=== PATIENT | female | born 1995 | race Caucasian/White ===

== ENCOUNTER 2017-03-31 15:00 | Inpatient (IN) ==
--- NOTE | 2017-03-31 15:41 | Emergency Department Note ---
Disposition Clinical Impression: Suicidal ideation, Visual hallucinations, Medical clearance for psychiatric admission Iron deficiency anemia Qualifiers: Iron deficiency anemia type: unspecified iron deficiency Qualified Code(s): D50.9 - Iron deficiency anemia, unspecified Disposition: Admitted As Inpatient Condition: Good Referrals: NONE,PCP [Primary Care Provider] - Forms: ED Satisfaction Letter Psych HPI - General Chief Complaint: ED Psychiatric Symptoms Stated Complaint: hallucinations/paranoid Time Seen by Provider: 03/31/17 15:20 Source: patient, family Mode of arrival: private vehicle Limitations: no limitations Nursing Notes Reviewed: Yes Vital Signs Reviewed: Yes - History of Present Illness HPI Narrative: 21-year-old female no reported psychiatric history who presents to the ER in the care of her family with a chief complaint of hallucinations and suicidal ideation. Family reports she went on a trip see her boyfriend in [place] 2 weeks ago. They state the trip went well and she came home and a good mood. Reports that after that she started to be depressed at home. States over the last 2-3 days she has been seen inks at home that are not there. Reports she saw her grandfather as well as a child in the home. She also states that she thinks that her time to . She does not elaborate on any plan. Denies any illicit drug use. Family does report they gave her 2 wine coolers yesterday to try to calm her down. Reports her emotions have been very sporadic. No other complaints. Pt complaint: suicidal ideation, feels depressed Onset (ago): day(s) Duration: constant History of similar episodes: No Improves with: none Worsens with: none Alleged intoxication: No Associated Psychiatric Symptoms: suicidal ideation, racing thoughts, visual hallucinations Associated symptoms: Reports: denies other symptoms Traumatic symptoms: denies traumatic injury Treatments prior to arrival: none Self harm or harm to others: admits thoughts of self harm, denies thoughts of harming self/others, denies having a plan - Related Data Allergies Allergy/AdvReac Type Severity Reaction Status Date / Time guaifenesin [From Robitussin] Allergy Hives Verified 03/31/17 15:04 sulfamethoxazole Allergy Hives Verified 03/31/17 15:04 [From Bactrim] trimethoprim [From Bactrim] Allergy Hives Verified 03/31/17 15:04 All systems ED: reviewed and negative except as stated. Neurological: Denies: headache Psychiatric: Reports: anxiety, depression, suicidal thoughts, visual hallucinations. Denies: homicidal thoughts, auditory hallucinations Past Medical History - Past Medical History Attestation: Yes The following information was validated with the patient. Source: patient Medical history: Reports: no medical history Psychiatric history: Reports: no psych history DIALYSIS NURSE history: Reports: no DIALYSIS NURSE history - Social History Smoking Status: Former smoker Smokeless Tobacco Status: No Alcohol use: Reports: occasionally, recent Drug use: Reports: marijuana Physical Exam - General Limitations: no limitations General appearance: alert, in no apparent distress - Head Head exam: atraumatic - Eye Eye exam: Present: normal appearance - ENT ENT exam: normal exam - Neck Neck exam: Present: normal inspection, full ROM - Chest Chest inspection: Present: normal inspection, symmetric chest wall rise - Respiratory Respiratory exam: Present: normal lung sounds bilaterally - Cardiovascular Cardiovascular exam: Present: regular rate, normal rhythm, normal heart sounds - Abdominal Exam Abdominal exam: Present: soft, Non-Tender. Absent: tenderness - Extremities Exam Extremities exam: Present: normal inspection, full ROM - Expanded Upper Extremity Exam Shoulder exam: Present: normal inspection, full ROM Arm exam: Present: normal inspection, full ROM Elbow exam: Present: normal inspection, full ROM Forearm/Wrist exam: Present: normal inspection, full ROM Hand exam: Present: normal inspection, full ROM - Expanded Lower Extremity Exam Hip/Pelvis exam: Present: normal inspection, full ROM Upper leg exam: Present: normal inspection, full ROM Knee exam: Present: normal inspection, full ROM Lower leg exam: Present: normal inspection, full ROM Ankle exam: Present: normal inspection, full ROM Foot/toe exam: Present: normal inspection, full ROM - Neurological Exam Neurological exam: Present: alert, other (Anxious, answers questions appropriately.) - Psychiatric Psychiatric exam: Present: anxious - Expanded Psychiatric Exam Expanded psych exam: Present: other (Emotionally labile in the room.) - Skin Skin exam: Present: warm Course Course Narrative: Patient seen and examined. Christie slip sign for suicidal ideation and hallucinations. We will get medical clearance labs for psychiatric evaluation. - Reevaluation(s) Reevaluation #1: Medical clear. Noted to be anemic. Vital Signs Temperature 98.2 F 03/31/17 15:04 Pulse Rate 83 03/31/17 15:04 Respiratory Rate 16 03/31/17 15:04 Blood Pressure 136/92 03/31/17 15:04 O2 Sat by Pulse Oximetry 100 03/31/17 15:04 Temperature 98.2 F 03/31/17 15:04 Pulse Rate 83 03/31/17 15:04 Respiratory Rate 16 03/31/17 15:04 Blood Pressure 136/92 03/31/17 15:04 O2 Sat by Pulse Oximetry 100 03/31/17 15:04 Oxygen Delivery Oxygen Delivery Room Air Psych - MDM Narrative Medical decision making narrative: 21-year-old female presents to the ER due to suicidal ideation and visual hallucinations. Noted to be anemic here with reported spotting for 3 weeks. She is medically cleared and evaluated by the psychiatric team. They recommend inpatient admission. - Lab Data Lab results reviewed: Yes I reviewed the patient's lab results. Result diagrams: 03/31/17 15:36 03/31/17 15:36 Lab Results 03/31/17 03/31/17 03/31/17 Range/Units 15:35 15:35 15:36 WBC 6.1 (4.3-11.1) K/mcL RBC 4.91 (3.82-4.97) M/mcL Hgb 10.4 L (11.5-15.4) g/dL Hct 35.1 L (35.3-44.9) % MCV 71.5 L (83.0-100.0) fL MCH 21.2 L (28.0-33.3) pg MCHC 29.6 L (31.6-35.5) g/dL RDW 18.6 H (11.5-14.5) % Plt Count 379 (140-400) K/mcL MPV 10.7 (9.4-12.4) fL Immature Gran % 0.2 (0-4) % Seg Neutrophils % 53.7 % Lymphocytes % 32.5 % Monocytes % 12.4 % Eosinophils % 0.5 % Basophils % 0.7 % Neutrophils # 3.3 (1.6-8.9) K/mcL Lymphocytes # 2.0 (0.6-4.6) K/mcL Monocytes # 0.8 (0.0-1.3) K/mcL Eosinophils # 0.0 (0.0-0.6) K/mcL Basophils # 0.0 (0.0-0.2) K/mcL Platelet Estimate Normal (Normal) Hypochromasia Present A (Not Present) Anisocytosis 1+ A (Not Present) Microcytosis Present A (Not Present) Sodium (136-145) mEq/L Potassium (3.5-5.1) mEq/L Chloride (98-107) mEq/L Carbon Dioxide (23-29) mEq/L BUN (6-20) mg/dL Creatinine (0.60-1.20) mg/dL Est GFR ( Amer) Est GFR (Non-Af Amer) BUN/Creatinine Ratio (6-26) Glucose (70-105) mg/dL Calculated Osmolality (280-300) Calcium (8.6-10.3) mg/dL Total Bilirubin (0.3-1.0) mg/dL Direct Bilirubin (0.0-0.2) mg/dL Indirect Bilirubin (0.0-1.2) mg/dL AST (13-39) Units/L ALT (7-52) Units/L Alkaline Phosphatase (34-104) Units/L Serum Total Protein (6.4-8.9) g/dL Albumin (3.5-5.7) g/dL Globulin (2.4-3.5) g/dL Albumin/Globulin Ratio (1.1-2.2) TSH (0.340-5.600) mcIU/mL Serum , Qual (Negative) Urine Color Yellow (Yellow) Urine Clarity Cloudy A (Clear) Urine pH 7.5 (5.0-8.0) pH Units Ur Specific [place] 1.022 (1.010-1.025) Urine Protein Trace (Neg-Trace) mg/dL Urine Glucose (UA) Normal (Normal) mg/dL Urine Ketones 80 H (Negative) mg/dL Urine Blood Large H (Negative) Urine Nitrite Negative (Negative) Urine Bilirubin Negative (Negative) Urine Urobilinogen Normal (Normal) mg/dL Ur Leukocyte Esterase Negative (Negative) Urine Microscopic RBC 5-15 H (0-3) per hpf Urine Microscopic WBC 5-15 H (0-3) per hpf Ur Squamous Epith Cells Many H (None-Few) per lpf Urine Bacteria None Seen (None-Few) per hpf Hyaline Casts None Seen (None-Few) per lpf Urine Yeast [employer] Salicylates (15.0-30.0) mg/dL Urine Opiates Screen Negative (Bwcoiq=896) ng/mL Acetaminophen (10-30) mcg/mL Ur Barbiturates Screen Negative (Hfkugz=096) ng/mL Ur Phencyclidine Scrn Negative (Cutoff=25) ng/mL Ur Amphetamines Screen Negative (Rrmdhr=5271) ng/mL U Benzodiazepines Scrn Negative (Nbhqed=957) ng/mL Urine Cocaine Screen Negative (Cutoff= 300) ng/mL U Marijuana (THC) Screen Positive H (Cutoff = 50) ng/mL Ethyl Alcohol (0-10) mg/dL 03/31/17 03/31/17 Range/Units 15:36 15:36 WBC (4.3-11.1) K/mcL RBC (3.82-4.97) M/mcL Hgb (11.5-15.4) g/dL Hct (35.3-44.9) % MCV (83.0-100.0) fL MCH (28.0-33.3) pg MCHC (31.6-35.5) g/dL RDW (11.5-14.5) % Plt Count (140-400) K/mcL MPV (9.4-12.4) fL Immature Gran % (0-4) % Seg Neutrophils % % Lymphocytes % % Monocytes % % Eosinophils % % Basophils % % Neutrophils # (1.6-8.9) K/mcL Lymphocytes # (0.6-4.6) K/mcL Monocytes # (0.0-1.3) K/mcL Eosinophils # (0.0-0.6) K/mcL Basophils # (0.0-0.2) K/mcL Platelet Estimate (Normal) Hypochromasia (Not Present) Anisocytosis (Not Present) Microcytosis (Not Present) Sodium 137 (136-145) mEq/L Potassium 3.9 (3.5-5.1) mEq/L Chloride 105 (98-107) mEq/L Carbon Dioxide 24 (23-29) mEq/L BUN 9 (6-20) mg/dL Creatinine 0.67 (0.60-1.20) mg/dL Est GFR ( Amer) > 60 Est GFR (Non-Af Amer) > 60 BUN/Creatinine Ratio 13 (6-26) Glucose 93 (70-105) mg/dL Calculated Osmolality 282 (280-300) Calcium 9.9 (8.6-10.3) mg/dL Total Bilirubin 0.9 (0.3-1.0) mg/dL Direct Bilirubin 0.2 (0.0-0.2) mg/dL Indirect Bilirubin 0.7 (0.0-1.2) mg/dL AST 14 (13-39) Units/L ALT 7 (7-52) Units/L Alkaline Phosphatase 70 (34-104) Units/L Serum Total Protein 7.8 (6.4-8.9) g/dL Albumin 4.7 (3.5-5.7) g/dL Globulin 3.1 (2.4-3.5) g/dL Albumin/Globulin Ratio 1.5 (1.1-2.2) TSH 1.157 (0.340-5.600) mcIU/mL Serum , Qual Negative (Negative) Urine Color (Yellow) Urine Clarity (Clear) Urine pH (5.0-8.0) pH Units Ur Specific [place] (1.010-1.025) Urine Protein (Neg-Trace) mg/dL Urine Glucose (UA) (Normal) mg/dL Urine Ketones (Negative) mg/dL Urine Blood (Negative) Urine Nitrite (Negative) Urine Bilirubin (Negative) Urine Urobilinogen (Normal) mg/dL Ur Leukocyte Esterase (Negative) Urine Microscopic RBC (0-3) per hpf Urine Microscopic WBC (0-3) per hpf Ur Squamous Epith Cells (None-Few) per lpf Urine Bacteria (None-Few) per hpf Hyaline Casts (None-Few) per lpf Urine Yeast Salicylates < 5.0 L (15.0-30.0) mg/dL Urine Opiates Screen (Pglzij=349) ng/mL Acetaminophen < 1.0 L (10-30) mcg/mL Ur Barbiturates Screen (Hqymvb=770) ng/mL Ur Phencyclidine Scrn (Cutoff=25) ng/mL Ur Amphetamines Screen (Tziaid=8113) ng/mL U Benzodiazepines Scrn ([place]=209) ng/mL Urine Cocaine Screen (Cutoff= 300) ng/mL U Marijuana (THC) Screen (Cutoff = 50) ng/mL Ethyl Alcohol < 10 (0-10) mg/dL Psychiatric Medical Clearance - Medical Clearance Checklist Medical History: Iron deficiency anemia (Acute) Suicidal ideation (Acute) Visual hallucinations (Acute) No Social History Section defined Current Vitals: Last Vital Signs Temp 98.2 F 03/31/17 15:04 Pulse 83 03/31/17 15:04 Resp 16 03/31/17 15:04 BP 136/92 03/31/17 15:04 Pulse Ox 100 03/31/17 15:04 Psychiatric Lab Panel: Drug Levels and Toxicity 03/31/17 03/31/17 15:35 15:36 Urine Opiates Screen Negative Acetaminophen < 1.0 L Ur Barbiturates Screen Negative Ur Phencyclidine Scrn Negative Ur Amphetamines Screen Negative U Benzodiazepines Scrn Negative Urine Cocaine Screen Negative U Marijuana (THC) Screen Positive H Ethyl Alcohol < 10 Abnormal Labs: Abnormal lab results Hgb 10.4 g/dL (11.5-15.4) L 03/31/17 15:36 Hct 35.1 % (35.3-44.9) L 03/31/17 15:36 MCV 71.5 fL (83.0-100.0) L 03/31/17 15:36 MCH 21.2 pg (28.0-33.3) L 03/31/17 15:36 MCHC 29.6 g/dL (31.6-35.5) L 03/31/17 15:36 RDW 18.6 % (11.5-14.5) H 03/31/17 15:36 Hypochromasia Present (Not Present) A 03/31/17 15:36 Anisocytosis 1+ (Not Present) A 03/31/17 15:36 Microcytosis Present (Not Present) A 03/31/17 15:36 Urine Clarity Cloudy (Clear) A 03/31/17 15:35 Urine Ketones 80 mg/dL (Negative) H 03/31/17 15:35 Urine Blood Large (Negative) H 03/31/17 15:35 Urine Microscopic RBC 5-15 per hpf (0-3) H 03/31/17 15:35 Urine Microscopic WBC 5-15 per hpf (0-3) H 03/31/17 15:35 Ur Squamous Epith Cells Many per lpf (None-Few) H 03/31/17 15:35 Salicylates < 5.0 mg/dL (15.0-30.0) L 03/31/17 15:36 Acetaminophen < 1.0 mcg/mL (10-30) L 03/31/17 15:36 U Marijuana (THC) Screen Positive ng/mL (Cutoff = 50) H 03/31/17 15:35 Attestation Statement - Attestation Attestation: I examined this patient and my medical decision-making was reviewed with the Resident Physician, Dr. Escobar. I agree with the documented findings, disposition and treatment plan as described except to the extent set forth below. Patient is a 21-year-old white female with no prior psychiatric history or hospitalizations to his right the emergency department today by her mom has been concerned about gradually worsening increased depression over the past 24- 48 hours, emotional lability, and most recently reported suicidal ideation. Patient has no plan is made no attempt to harm herself. She is also complaining of both visual and auditory hallucinations. There is been no recent stressors in the home or significant events that have occurred that preceded the onset of these symptoms. I agree with patient's physical exam findings as documented. Vital signs are stable. Patient's lab evaluation and urine studies are within normal limits. Patient was medically cleared for further psychiatric evaluation, and one a came to evaluate the patient in the ED. Christie slip was signed and placed on the chart. Following their evaluation they agreed that the patient would require inpatient admission and treatment. Patient will be admitted for further evaluation and transferred to the psychiatric floor.
[2017-03-31 15:51] LABS: Basophils % 0.7 %; Eosinophils % 0.5 %; Hematocrit 35.1 % (35.3-44.9); Hemoglobin 10.4 g/dL (11.5-15.4); Immature Granulocytes % 0.2 % (0-4); Lymphocytes % 32.5 %; Mean Corpuscular HGB Conc 29.6 g/dL (31.6-35.5); Mean Corpuscular Hemoglobin 21.2 pg (28.0-33.3); Mean Corpuscular Volume 71.5 fL (83.0-100.0); Mean Platelet Volume 10.7 fL (9.4-12.4); Monocytes # 0.8 K/mcL (0.0-1.3); Monocytes % 12.4 %; Neutrophils # 3.3 K/mcL (1.6-8.9); Platelet Count 379 K/mcL (140-400); Red Blood Count 4.91 M/mcL (3.82-4.97); Red Cell Distribution Width 18.6 % (11.5-14.5); Segmented Neutrophils % 53.7 %
[2017-03-31 15:51] LABS: Bilirubin,Urine Negative (Negative); Blood,Urine Large (Negative); Clarity,Urine Cloudy (Clear); Color,Urine Yellow (Yellow); Glucose,Urine (UA) Normal (Normal); Ketones,Urine 80 mg/dL (Negative); Leukocyte Esterase,Urine Negative (Negative); Nitrite,Urine Negative (Negative); PH,Urine 7.5 pH Units (5.0-8.0); Protein,Urine Trace mg/dL (Neg-Trace); Specific Gravity,Urine 1.022 (1.010-1.025); Urobilinogen,Urine Normal (Normal)
[2017-03-31 15:54] LABS: Amphetamine Screen,Urine Negative ng/mL (Cutoff=1000); Bacteria,Urine None Seen per hpf (None-Few); Barbiturate Screen,Urine Negative ng/mL (Cutoff=200); Benzodiazepines Screen,Urine Negative ng/mL (Cutoff=200); Cannabinoid Screen,Urine Positive ng/mL (Cutoff = 50); Cocaine Screen,Urine Negative ng/mL (Cutoff= 300); Hyaline Casts,Urine None Seen per lpf (None-Few); Opiate Screen,Urine Negative ng/mL (Cutoff=300); Phencyclidine Screen,Urine Negative ng/mL (Cutoff=25); Squamous Epithelial Cell,Urine Many per lpf (None-Few)
[2017-03-31 16:14] LABS: Alanine Aminotransferase 7 Units/L (7-52); Albumin 4.7 g/dL (3.5-5.7); Albumin/Globulin Ratio 1.5 (1.1-2.2); Alkaline Phosphatase 70 Units/L (34-104); Aspartate Amino Transferase 14 Units/L (13-39); BUN/Creatinine Ratio 13 (6-26); Bilirubin,Direct 0.2 mg/dL (0.0-0.2); Bilirubin,Indirect 0.7 mg/dL (0.0-1.2); Bilirubin,Total 0.9 mg/dL (0.3-1.0); Blood Urea Nitrogen 9 mg/dL (6-20); Calcium 9.9 mg/dL (8.6-10.3); Carbon Dioxide 24 mEq/L (23-29); Chloride 105 mEq/L (98-107); Globulin 3.1 g/dL (2.4-3.5); Glucose 93 mg/dL (70-105); Osmolality,Calculated 282 (280-300); Potassium 3.9 mEq/L (3.5-5.1); Sodium 137 mEq/L (136-145); Total Protein 7.8 g/dL (6.4-8.9); eGFR For African Americans > 60; eGFR For Non-African Americans > 60
[2017-03-31 16:19] LABS: Acetaminophen < 1.0 mcg/mL (10-30); Ethanol < 10 mg/dL (0-10); Salicylate < 5.0 mg/dL (15.0-30.0)
[2017-03-31 16:27] LABS: Thyroid Stimulating Hormone 1.157 mcIU/mL (0.340-5.600)
[2017-03-31 16:41] LABS: Hypochromasia Present (Not Present); Microcytosis Present (Not Present); Platelet Estimate Normal (Normal)
[2017-03-31 16:42] LABS: Anisocytosis 1+ (Not Present)
[2017-03-31] MEDS ORDERED: *HR* LORazepam 1 MG TABLET PO ONE (17:44)
[2017-03-31] MEDS ORDERED: MOM Conc 10 ML UD.LIQ PO PRN (19:44)
[2017-03-31] MEDS ORDERED: *HR* LORazepam 2 MG/ML VIAL IM PRN (19:44)
[2017-03-31] MEDS ORDERED: traZODone 50 MG TABLET PO PRN (19:44)
[2017-03-31] MEDS ORDERED: Ibuprofen 400 MG TABLET PO PRN (19:44)
[2017-03-31] MEDS ORDERED: Mag Hydrox/Al Hydrox/Simeth 30 ML UDC PO PRN (19:44)
[2017-03-31] MEDS ORDERED: *HR* LORazepam 1 MG TABLET PO PRN (19:44)
[2017-03-31] MEDS ORDERED: hydrOXYzine pamoate 25 MG CAPSULE PO PRN (19:44)
[2017-03-31] MEDS ORDERED: Haloperidol Lactate 5 MG/ML VIAL IM PRN (19:44)
[2017-03-31] MEDS ORDERED: OLANZapine 5 MG TAB.RAPDIS PO PRN (19:48)
--- NOTE | 2017-04-01 13:52 | Psychiatry History & Physical ---
Date of Encounter: 04/01/17 Time of Encounter: 13:30 History of Present Illness Patient Stated Chief Complaint: I have responsibliites and depression Medicare Admission Attestation: For traditional Medicare patients the provided hospital inpatient services are reasonable and necessary and in the case of services not specified as inpatient -only under 42 CFR 419.22 (n), that they are appropriately provided as inpatient services in accordance 42 CFR 412.3. For Critical Access Hospital the patient may reasonably be expected to be discharged or transferred to a hospital within 96 hours after admission to the Critical Access Hospital. Admitted From: Emergency Dept Plans for Post Hospital Care: Home History of Present Illness: Ms. Arias is a 21 year old female She is a single female. She is she is on an emergency hold but agrees to stay in the hospital. The patient identified increasing responsibilities and difficulties. She has increased anger. History of present illness. The patient has several days of sleep deprivation. She prevented presented with several months of low self-esteem low interest rumination. She has somatic concerns. She has decreased energy or concentration is okay her appetite is decreased and she has lost probably 20 pounds. She has decreased activity decrease sleep she has suicidal ideation she was ready to end her life last night. Currently she has no plans to kill herself on the unit but has ongoing suicidal ideation. Patient has increased anxiety with occasional panic attacks she does not have or phobias she does not have PTSD. The patient has no psychiatric treatment although she was taken to a counselor when her sister was calling the patient convinced the counselor that she was angry and let her go unless patient reports ongoing depression for a long period of time. Past medical history:. Surgery appendectomy, illnesses childhood asthma and exercise-induced shortness of breath. The patient was seen for a twitch by neurology. She was told that she did not have epilepsy and was not treated. The patient has been found to have anemia. This is due to continued menses with some pain. Allergies Bactrim Robitussin guaifenesin and sulfa. The patient is AB 0 her last menstrual period is ongoing. She is not using any control to stop. Family history the patient's mother has depression and has smoked marijuana. Paternal grandmother had depression. A paternal, cousin had depression A maternal uncle had pedophilia so she stayed away from him. A sister had cutting there is no family history of suicide the mother and sister used marijuana there is no other drug abuse sister has migraines. Social history: The patient grew up in [place] but her residence and living situation and chain of custody is disrupted from age 6 going to her great- grandmother back living with her dad getting kicked out of the house etc. The patient completed high school and thought about going to some college. She dated a boyfriend Anderson who went into the [employer] they decided to hold off for a period of time. She did another ro who is a work in the factory and this was not so good because he was a meth head. She returned to the mother's home where she found her sister and brother in a state of malnourishment the electric turned off and the 10 people sleeping there every night. There are 3 cats 4 dogs and L5 puppies. 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 Review of systems is significant for headaches with Tylenol. Her back hurting. The patient smoked for a while but is recently quit. She has some leg restlessness. She has a blue [employer] or Blue Shield type of insurance. The patient reported hearing voices and seeing visions but did not wish to elaborate on that further. Past Med Surg Social Fam HX - Past Medical History Source: patient Medical history: non-contributory - Past Psychiatric History Psychiatric history: Reports: depression Family psychiatric history: Yes Family History of Suicide: None - Past Surgical History Surgical History: non-contributory, appendectomy - Social History Smoking Status: Former smoker Smokeless Tobacco Status: No Alcohol use: occasionally, recent Drug use: marijuana Occupational status: employed Current living situation: Home - Independent Activity Level: Independent ambulation Recent Out of Country Travel Within the Last 8 Weeks: No Exposure or Possible Exposure to Illness During Travel: No Medications & Allergies No Known Home Drugs 03/31/17 [History] 3 Allergy/AdvReac Type Severity Reaction Status Date / Time guaifenesin [From Robitussin] Allergy Hives Verified 03/31/17 15:04 sulfamethoxazole Allergy Hives Verified 03/31/17 15:04 [From Bactrim] trimethoprim [From Bactrim] Allergy Hives Verified 03/31/17 15:04 Review of Systems Constitutional: Reports: weight change Ears, Nose, Throat: Denies: ear pain, throat pain, dental pain, hearing loss, congestion Cardiovascular: Reports: dyspnea on exertion Respiratory: Denies: cough, dyspnea, wheezes Gastrointestinal: Denies: abdominal pain, nausea, vomiting, diarrhea, constipation Genitourinary female: Reports: hematuria, abnormal menses, dyspareunia Musculoskeletal: Reports: back pain. Denies: joint swelling, joint pain Integumentary: Denies: rash, lesions, pruritus Neurological: Reports: headache. Denies: weakness, numbness, memory loss Psychiatric: Reports: abnormal sleep pattern, suicidal ideation, auditory hallucinations, visual hallucinations, hopelessness, panic attacks Endocrine: Denies: fatigue, heat or cold intolerance Hematologic/Lymphatic: Reports: easy bleeding Allergic/Immunologic: Denies: urticaria, itchy eyes Mental Status Exam Patient orientation: Yes Person, Yes Time, Yes Place Level of alertness: Alert Patient appearance: Appropriate, Well Groomed Behavior: anxious, tearful, fearful Psychomotor activity: Slowed Eye contact: Maintains Eye Contact Mood description: Depressed, Anxious Affect description: tearful Speech pattern: Normal rate Speech volume: Normal Thought process: Slowed Thinking Thought content: Yes Thought insertion, Yes Phobic Perceptual disturbances: Yes Auditory hallucinations, Yes Visual hallucinations Attention span: Unable to Sustain Attention Memory description: Immediate Intact, Remote Intact Patient reliability: Reliable Historian Intelligence estimate: Above [place] Judgment: Fair Insight: Partial Exam - HEENT Head exam IM: Present: atraumatic, normal inspection, normocephalic Eye exam IM: Present: normal appearance ENT exam IM: Present: mucous membranes dry - Neurological Neurological exam IM: Present: alert, CN II-XII intact - Extremities Extremities exam IM: Present: warm - Skin Skin exam IM: Present: warm Results - Vital Signs Vital signs: Temp Pulse Resp BP Pulse Ox 98.6 F 101 16 119/72 100 03/31/17 20:35 03/31/17 20:35 03/31/17 20:35 03/31/17 20:35 03/31/17 15:04 - Drug Levels and Toxicology Drug Levels and Toxicology: MJ+ - Labs Labs: Laboratory Last Values WBC 6.1 K/mcL (4.3-11.1) 03/31/17 15:36 RBC 4.91 M/mcL (3.82-4.97) 03/31/17 15:36 Hgb 10.4 g/dL (11.5-15.4) L 03/31/17 15:36 Hct 35.1 % (35.3-44.9) L 03/31/17 15:36 MCV 71.5 fL (83.0-100.0) L 03/31/17 15:36 MCH 21.2 pg (28.0-33.3) L 03/31/17 15:36 MCHC 29.6 g/dL (31.6-35.5) L 03/31/17 15:36 RDW 18.6 % (11.5-14.5) H 03/31/17 15:36 Plt Count 379 K/mcL (140-400) 03/31/17 15:36 MPV 10.7 fL (9.4-12.4) 03/31/17 15:36 Immature Gran % 0.2 % (0-4) 03/31/17 15:36 Seg Neutrophils % 53.7 % 03/31/17 15:36 Lymphocytes % 32.5 % 03/31/17 15:36 Monocytes % 12.4 % 03/31/17 15:36 Eosinophils % 0.5 % 03/31/17 15:36 Basophils % 0.7 % 03/31/17 15:36 Neutrophils # 3.3 K/mcL (1.6-8.9) 03/31/17 15:36 Lymphocytes # 2.0 K/mcL (0.6-4.6) 03/31/17 15:36 Monocytes # 0.8 K/mcL (0.0-1.3) 03/31/17 15:36 Eosinophils # 0.0 K/mcL (0.0-0.6) 03/31/17 15:36 Basophils # 0.0 K/mcL (0.0-0.2) 03/31/17 15:36 Platelet Estimate Normal (Normal) 03/31/17 15:36 Hypochromasia Present (Not Present) A 03/31/17 15:36 Anisocytosis 1+ (Not Present) A 03/31/17 15:36 Microcytosis Present (Not Present) A 03/31/17 15:36 Sodium 137 mEq/L (136-145) 03/31/17 15:36 Potassium 3.9 mEq/L (3.5-5.1) 03/31/17 15:36 Chloride 105 mEq/L (98-107) 03/31/17 15:36 Carbon Dioxide 24 mEq/L (23-29) 03/31/17 15:36 BUN 9 mg/dL (6-20) 03/31/17 15:36 Creatinine 0.67 mg/dL (0.60-1.20) 03/31/17 15:36 Est GFR ( Amer) > 60 03/31/17 15:36 Est GFR (Non-Af Amer) > 60 03/31/17 15:36 BUN/Creatinine Ratio 13 (6-26) 03/31/17 15:36 Glucose 93 mg/dL (70-105) 03/31/17 15:36 Calculated Osmolality 282 (280-300) 03/31/17 15:36 Calcium 9.9 mg/dL (8.6-10.3) 03/31/17 15:36 Total Bilirubin 0.9 mg/dL (0.3-1.0) 03/31/17 15:36 Direct Bilirubin 0.2 mg/dL (0.0-0.2) 03/31/17 15:36 Indirect Bilirubin 0.7 mg/dL (0.0-1.2) 03/31/17 15:36 AST 14 Units/L (13-39) 03/31/17 15:36 ALT 7 Units/L (7-52) 03/31/17 15:36 Alkaline Phosphatase 70 Units/L (34-104) 03/31/17 15:36 Serum Total Protein 7.8 g/dL (6.4-8.9) 03/31/17 15:36 Albumin 4.7 g/dL (3.5-5.7) 03/31/17 15:36 Globulin 3.1 g/dL (2.4-3.5) 03/31/17 15:36 Albumin/Globulin Ratio 1.5 (1.1-2.2) 03/31/17 15:36 TSH 1.157 mcIU/mL (0.340-5.600) 03/31/17 15:36 Serum , Qual Negative (Negative) 03/31/17 15:36 Urine Color Yellow (Yellow) 03/31/17 15:35 Urine Clarity Cloudy (Clear) A 03/31/17 15:35 Urine pH 7.5 pH Units (5.0-8.0) 03/31/17 15:35 Ur Specific [place] 1.022 (1.010-1.025) 03/31/17 15:35 Urine Protein Trace mg/dL (Neg-Trace) 03/31/17 15:35 Urine Glucose (UA) Normal mg/dL (Normal) 03/31/17 15:35 Urine Ketones 80 mg/dL (Negative) H 03/31/17 15:35 Urine Blood Large (Negative) H 03/31/17 15:35 Urine Nitrite Negative (Negative) 03/31/17 15:35 Urine Bilirubin Negative (Negative) 03/31/17 15:35 Urine Urobilinogen Normal mg/dL (Normal) 03/31/17 15:35 Ur Leukocyte Esterase Negative (Negative) 03/31/17 15:35 Urine Microscopic RBC 5-15 per hpf (0-3) H 03/31/17 15:35 Urine Microscopic WBC 5-15 per hpf (0-3) H 03/31/17 15:35 Ur Squamous Epith Cells Many per lpf (None-Few) H 03/31/17 15:35 Urine Bacteria None Seen per hpf (None-Few) 03/31/17 15:35 Hyaline Casts None Seen per lpf (None-Few) 03/31/17 15:35 Urine Yeast [employer] COORDINATOR 03/31/17 15:35 Salicylates < 5.0 mg/dL (15.0-30.0) L 03/31/17 15:36 Urine Opiates Screen Negative ng/mL (Ileppf=988) 03/31/17 15:35 Acetaminophen < 1.0 mcg/mL (10-30) L 03/31/17 15:36 Ur Barbiturates Screen Negative ng/mL (Tmdgfq=462) 03/31/17 15:35 Ur Phencyclidine Scrn Negative ng/mL (Cutoff=25) 03/31/17 15:35 Ur Amphetamines Screen Negative ng/mL (Cvnsep=1882) 03/31/17 15:35 U Benzodiazepines Scrn Negative ng/mL (Ivafct=704) 03/31/17 15:35 Urine Cocaine Screen Negative ng/mL (Cutoff= 300) 03/31/17 15:35 U Marijuana (THC) Screen Positive ng/mL (Cutoff = 50) H 03/31/17 15:35 Ethyl Alcohol < 10 mg/dL (0-10) 03/31/17 15:36 - Impressions anemia Assessment and Plan (1) Major depressive disorder, single episode, severe with psychotic features Current visit: Yes Status: Acute Plan: Admit inpatient for safety and stabilization, Close observation, Encourage participation in unit milieu, Monitor sleep Additional Plan: Patient will be started on Zoloft 50 mg by mouth every morning and Zyprexa 5 mg daily at bedtime. The patient has major depression but this is complicated by mood congruent psychotic features. Zyprexa may be helpful as the patient has loss of appetite and weight. It also may help with difficulties with sleep. Risks, benefits, side effects, alternatives discussed w/pt: Yes Patient agreeable to treatment: Yes Plans for Post Hospital Care: Home Estimated Length of Stay (Days): 6 (2) DUB (dysfunctional uterine bleeding) Current visit: Yes Status: Acute Plan: Other Additional Plan: Consults for gynecology to evaluate Risks, benefits, side effects, alternatives discussed w/pt: Yes Patient agreeable to treatment: Yes Plans for Post Hospital Care: Home (3) Cannabis abuse, uncomplicated Current visit: Yes Status: Acute Plan: Monitor appetite Risks, benefits, side effects, alternatives discussed w /pt: No Patient agreeable to treatment: No Plans for Post Hospital Care: Home (4) Weight loss, non-intentional Current visit: Yes Status: Acute Plan: Monitor appetite Risks, benefits, side effects, alternatives discussed w /pt: Yes Patient agreeable to treatment: Yes Plans for Post Hospital Care: Home (5) Iron deficiency anemia Current visit: Yes Status: Acute Plan: Other Additional Plan: add iron suppliment Risks, benefits, side effects, alternatives discussed w/pt: Yes Patient agreeable to treatment: Yes Plans for Post Hospital Care: Hospice - Home Qualifiers: Iron deficiency anemia type: chronic blood loss Qualified Code(s): D50.0 - Iron deficiency anemia secondary to blood loss (chronic) (6) Suicidal ideation Current visit: Yes Status: Acute Plan: Close observation, Suicide Precautions per unit protocol, Encourage participation in unit milieu, Secure weapons, Family/Supportive other meeting Risks, benefits, side effects, alternatives discussed w/pt: Yes Patient agreeable to treatment: Yes Plans for Post Hospital Care: Home
[2017-04-01] MEDS: OLANZapine 5 MG TAB.RAPDIS PO SCH (20:41)
--- NOTE | 2017-04-02 11:43 | Psychiatry Progress Note ---
Date of Encounter: 04/02/17 Time of Encounter: 11:15 Subjective Interval history: When I asked the patient how she is feeling today, she still tells me "right now , little anxious". When I asked her why she is anxious, she states she is concerned about how she can a pay for the hospital stay. When I explained to her that someone will work with her to get the details of that worked out. For now, it is good that she is getting help, she agrees. When asked how she is feeling in regards to her overall mental health, she tells me she is not as depressed as she was when she was admitted. She states that the medications helped her to sleep last night. She is having decreasing passive thoughts of dying as opposed to feeling more suicidal when she came in. She is not having any auditory or visual hallucinations. She denies any adverse side effects of Zyprexa and the Zoloft that she was started on. She states that her uterine bleeding has slowed down or stopped. She was wondering if it was stress- related. She states that she is better able to rest now. After she had breakfast this morning, went back to bed to relax. Her attention and concentration were not very good this morning but she states now that it seems like it is better than it had been. Review of Systems Psychiatric: Reports: abnormal sleep pattern, suicidal ideation, auditory hallucinations, visual hallucinations, hopelessness, panic attacks Objective: Exam Patient orientation: Yes Person, Yes Time, Yes Place, Yes Circumstance Level of alertness: Alert Patient appearance: Appropriate, Well Groomed Behavior: anxious Psychomotor activity: Normal Eye contact: Fleeting Contact Mood description: Anxious Patient description of mood: I'm a little anxious right now Affect description: congruent with mood Speech pattern: Normal rate, Normal rhythm, Normal tone Speech volume: Normal Thought process: Intact, Linear, Goal Oriented Thought content: Yes Suicidal ideation (passive, lessening) Judgment: Fair Insight: Partial Results - Vital Signs Vital Signs: Temp Pulse Resp BP Pulse Ox 97.7 F 91 16 137/84 100 04/02/17 09:00 04/02/17 09:00 04/02/17 09:00 04/02/17 09:00 03/31/17 15:04 Assessment and Plan (1) Major depressive disorder, single episode, severe with psychotic features Current visit: Yes Status: Acute Plan: Continue hospitalization, Close observation, Suicide Precautions per unit protocol, Group Therapy, Monitor sleep, Monitor appetite Risks, benefits, side effects, alternatives discussed w/pt: Yes (Continue medications as written ) Patient agreeable to treatment: Yes Consult Discharge Plan - Plan Referrals: NONE,PCP [Primary Care Provider] -
--- NOTE | 2017-04-02 17:43 | OB/GYN Consult Note ---
Date of Encounter: 04/02/17 Time of Encounter: 17:39 Assessment and Plan (1) Cannabis abuse, uncomplicated Current Visit: Yes Status: Acute (2) DUB (dysfunctional uterine bleeding) Current Visit: Yes Status: Acute Pt to call our office if she would like to follow-up. She states her bleeding stopped today. (3) Iron deficiency anemia Current Visit: Yes Status: Acute Pt on iron Qualifiers: Iron deficiency anemia type: chronic blood loss Qualified Code(s): D50.0 - Iron deficiency anemia secondary to blood loss (chronic) (4) Contraceptive education Current Visit: Yes Status: Acute Pt does not desire at this time. We discussed that control would help prevent unintended and may help her bleeding. She agrees but will call for an appointment if she decides to follow-up. History of Present Illness Consult date: 04/02/17 Reason for consult: menorrhagia History of present illness: 21 year-old female currently admitted for suicidal ideation. She was found to be anemic on admission and reports heavy menses. She states her periods have always been heavy but this month her period lasted 3 weeks. It has ended today. She is sexually active and desires contraception but has never seen an OBGYN. She would like to do this but she isn't sure where she will be living following her discharge from the hospital. She denies any history of . No history of STI. No current discharge, itching, burning, pelvic pain or other SALES [employer] related complaints. She declines to have me schedule her follow-up appointment at this time but states she will once she decides where she will be living. Past Med Surg Social Fam HX - Past Medical History Medical history: non-contributory Psychiatric history: depression - Past Surgical History Surgical History: non-contributory, appendectomy - Social History Smoking Status: Former smoker Smokeless Tobacco Status: No Alcohol use: occasionally, recent Drug use: marijuana Medications and Allergies No Known Home Drugs 03/31/17 [History] 3 Allergy/AdvReac Type Severity Reaction Status Date / Time guaifenesin [From Robitussin] Allergy Hives Verified 03/31/17 15:04 sulfamethoxazole Allergy Hives Verified 03/31/17 15:04 [From Bactrim] trimethoprim [From Bactrim] Allergy Hives Verified 03/31/17 15:04 Review of Systems All Systems: reviewed and no additional remarkable complaints except as stated Constitutional: as per HPI, weight loss Cardiovascular: no irregular heart rhythm, no palpitations, no rapid heart rate Genitourinary Female: no dysmenorrhea, no dyspareunia, no dysuria, no pelvic pain, no vaginal discharge, no vaginal odor, no vaginal pruritis Menstruation: period heavy Exam - Vital Signs Vital signs: Initial Vital Signs Temp Pulse Resp BP Pulse Ox 98.2 F 83 16 136/92 100 03/31/17 15:04 03/31/17 15:04 03/31/17 15:04 03/31/17 15:04 03/31/17 15:04 - Constitutional Constitutional: well developed, well nourished, no acute distress - HEENT HEENT: Mucus Membranes Moist - Lungs Respiratory exam: CTAB - Cardiovascular Cardiovascular exam: RRR - Abdomen Abdomen: Present: non tender - Extremities Extremities exam: normal inspection - Vulva Vulva: bilateral: normal (Pt declines pelvic exam at this time) Results Result Diagrams: 03/31/17 15:36 03/31/17 15:36 Abnormal lab results Hgb 10.4 g/dL (11.5-15.4) L 03/31/17 15:36 Hct 35.1 % (35.3-44.9) L 03/31/17 15:36 MCV 71.5 fL (83.0-100.0) L 03/31/17 15:36 MCH 21.2 pg (28.0-33.3) L 03/31/17 15:36 MCHC 29.6 g/dL (31.6-35.5) L 03/31/17 15:36 RDW 18.6 % (11.5-14.5) H 03/31/17 15:36 Hypochromasia Present (Not Present) A 03/31/17 15:36 Anisocytosis 1+ (Not Present) A 03/31/17 15:36 Microcytosis Present (Not Present) A 03/31/17 15:36 Urine Clarity Cloudy (Clear) A 03/31/17 15:35 Urine Ketones 80 mg/dL (Negative) H 03/31/17 15:35 Urine Blood Large (Negative) H 03/31/17 15:35 Urine Microscopic RBC 5-15 per hpf (0-3) H 03/31/17 15:35 Urine Microscopic WBC 5-15 per hpf (0-3) H 03/31/17 15:35 Ur Squamous Epith Cells Many per lpf (None-Few) H 03/31/17 15:35 Salicylates < 5.0 mg/dL (15.0-30.0) L 03/31/17 15:36 Acetaminophen < 1.0 mcg/mL (10-30) L 03/31/17 15:36 U Marijuana (THC) Screen Positive ng/mL (Cutoff = 50) H 03/31/17 15:35 All other labs normal. Consult Discharge Plan - Plan Referrals: NONE,PCP [Primary Care Provider] -
[2017-04-02] MEDS: OLANZapine 5 MG TAB.RAPDIS PO SCH (21:06)
--- NOTE | 2017-04-03 17:23 | Psychiatry Progress Note ---
Date of Encounter: 04/03/17 Time of Encounter: 17:10 Subjective Interval history: When I asked the patient today how she is doing she tells me "good". She states that the Zyprexa she had last night, while low dose, made her feel very lethargic this morning. She tells me "I felt like a zombie". She is not sure that she needs to Zyprexa. She states that she is not having any auditory or visual hallucinations at this time. She states that she is feeling less depressed and has no active suicidal or homicidal ideation. She has spoken to her mother and her mother is taking on more responsibility which gives her a sense of relief. She is future oriented towards moving to [place] to be with her boyfriend who is in the . She states she is not as depressed and anxious. She is more hopeful about the future. Her uterine bleeding has stopped and she feels physically better about that after consulting with gynecology. She denies any adverse side effects for medication except for the sedation from the Zyprexa. She is requesting the Zyprexa be stopped and see how her sleep and thoughts are without having a dose of it tonight. She believes if she sleeps tonight without the Zyprexa and her mood remains stable, that she will be ready for discharge tomorrow. Review of Systems Psychiatric: Reports: abnormal sleep pattern, suicidal ideation, auditory hallucinations, visual hallucinations, hopelessness, panic attacks Objective: Exam Patient orientation: Yes Person, Yes Time, Yes Place, Yes Circumstance Level of alertness: Alert Patient appearance: Appropriate, Well Groomed Behavior: calm Psychomotor activity: Normal Eye contact: Maintains Eye Contact Mood description: Depressed (less), Anxious (less) Affect description: congruent with mood Speech pattern: Normal rate, Normal rhythm, Normal tone Speech volume: Normal Thought process: Intact, Linear, Goal Oriented Thought content: Yes Intact Judgment: Fair Insight: Partial Results - Vital Signs Vital Signs: Temp Pulse Resp BP Pulse Ox 98.5 F 67 16 135/82 100 04/03/17 09:00 04/03/17 09:00 04/03/17 09:00 04/03/17 09:00 03/31/17 15:04 Assessment and Plan (1) Major depressive disorder, single episode, severe with psychotic features Current visit: Yes Status: Acute Risks, benefits, side effects, alternatives discussed w/pt: Yes (D/C Zyprexa) Patient agreeable to treatment: Yes Consult Discharge Plan - Plan Referrals: [facility] [Outside] - 04/19/17 9:30 am (The above appointment is with Elvia Wise for primary health care and medication management services. Please arrive 15 minutes early to complete paperwork. You will also see , for mental health counseling services, on in the same office on. Please bring your insurance card, photo ID and medications in their original bottles. If you do not have insurance, bring proof of income to apply for the sliding fee scale. If you are unable to keep this appointment, 24 hour business notice of cancellation is expected. The above appointment(s) reflects first availability. You may contact the office regularly to check for cancellations that may allow you to be seen sooner.)
[2017-04-04 08:59] VITALS: BP 117/76
--- NOTE | 2017-04-04 11:39 | Discharge Summary ---
Date of Encounter: 04/04/17 Time of Encounter: 11:35 Diagnosis - Discharge Diagnosis (1) Major depressive disorder, single episode, severe with psychotic features Status: Acute Medications - Discharge Medications Prescriptions: Sertraline [Zoloft] 50 mg PO DAILY 30 Days #30 tablet Ferrous Sulfate 325 mg PO DAILY@0800 #0 tablet 04/04/17 [Rx] Sertraline [Zoloft] 50 mg PO DAILY 30 Days #30 tablet 04/04/17 [Rx] 3 Allergy/AdvReac Type Severity Reaction Status Date / Time guaifenesin [From Robitussin] Allergy Hives Verified 03/31/17 15:04 sulfamethoxazole Allergy Hives Verified 03/31/17 15:04 [From Bactrim] trimethoprim [From Bactrim] Allergy Hives Verified 03/31/17 15:04 Provider Date of admission: 03/31/17 19:18 Primary care physician: PCP NONE Consults: 04/01/17 13:57 Consult to HEAD SAWYER [CONS] Routine Consulting Provider: [employer] Reason for Consult: DUB Call Completed: No Assessment and Plan - Patient/Caregiver Discharge Instructions Activity: resume usual activities as tolerated Diet: regular diet - Follow up Plan Follow up with: [facility] [Outside] - 04/19/17 9:30 am (The above appointment is with Elvia Wise for primary health care and medication management services.) [facility] [Outside] (To establish as a client, please come to the clinic between 8:00am - 3:00pm Sunday through Sunday. You will be completing paperwork and meeting with clerical staff. Please bring written proof of income with you (two consecutive pay stubs, bank statement, statement letter from [employer], IRS 1040 or W2 form, etc.). You will then receive an appointment to meet with a counselor. ) Functional capacity at discharge: independent ambulation Overall status at discharge: Stable Disposition: Home, Self-Care Hospital Course Hospital course: Ms. Arias is a 21 year old female who was admitted for symptoms of depression and SI. She was started on medication targeting these symptoms by the admitting covering psychiatrist. Patient tells me today, "I feel good. I'm ready to go home and start living my own existence instead of what I thought I was supposed to do." Patient had been feeling overwhelmed with her responsibility caring for her mother and siblings; emotionally and financially. She was having thoughts of wanting to and feeling no way out of this situation. She denies any side effects of the SSRI and states that having time away and being able to go to groups and process her feeling with group as well as talking to her mother. They are able to come to an understanding and the patient no longer feels like she has to financially support her family. She is hoping to make plans to move to [place] to live with her boyfriend who is in the . Her uterine bleeding has stopped, believing it was stress related. She denies any depression or anxiety. She denies SI/SIB/HI, A/V hallucinations. She denies any side effects of her medications and will follow up in outpatient as she is scheduled. Sleep is good. Appetite is good. Mood is stable Does patient wish to continue nicotine replacement upon disc: No - Time Spent with Patient Total time spent providing and/or coordinating discharge services: 20 min Less than 30 minutes Quality - Multiple Antipsychotics Patient discharged on 2 or more antipsychotic medications: No Procedures - Procedures Procedures: Medication Management, Crisis Stabilization, Supportive Therapy, Group Therapy, Psychoeducational Therapy Mental Status Exam - Mental Status Exam Patient orientation: Yes Person, Yes Time, Yes Place Level of alertness: Alert Patient appearance: Appropriate, Well Groomed, Well-nourished Behavior: calm Psychomotor activity: Normal Eye contact: Maintains Eye Contact Mood description: Euthymic/stable Affect description: congruent with mood, other (bright) Speech pattern: Normal rate, Normal rhythm, Normal tone Speech Volume: Normal Thought process: Intact, Linear, Goal Oriented Thought Content: Yes Intact Judgment: Good Insight: Full
[2017-04-05 08:24] LABS: Thyroglobulin Antibody <0.9 IU/mL (0.0-4.0)
== END 2017-04-04 12:30 | disposition home or self-care (01) | DRG 885 ==
LOC: EMEROO 15:00 → 1ANU 19:18 → SUATTDRO 19:18 → 1ANU 19:24
PROVIDERS: ADMIT Psychiatry & Neurology Forensic Psychiatry; ATTEND Psychiatry & Neurology Psychiatry